=== PATIENT | female | born 1935 | race Two or more races ===

== ENCOUNTER 2024-11-19 15:48 | Inpatient (IN) | payer BC, OTHER ==
[~2024-11-19] VITALS: Ht 167.6 cm; Wt 69.5 kg
--- NOTE | 2024-11-19 16:32 | ED.PDOC ---
HPI (NEURO) HPI Comments 89 y/o F, with PMHX of DM, HTN, and CVA presents to the ED for CC of s/p syncopal episode. Per EMS, patient is coming from home where she had a witnessed syncopal episode by son which lasted at 30 seconds. EMS comments, patient's son was attempting to wake patient up by tapping her face and patient remained unresponsive. Patient's son endorses, that patients head zhane back and was unresponsive to stimuli for approximately 30 seconds. All VVS in route to the ED. Patient denies any head injury, musculoskeletal pain, lightheadedness, or nausea. No other symptoms or modifying factors at this time. 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 Family History Family History: Unknown Social History Smoker: Non-Smoker Alcohol: Denies ETOH Use Drugs: Denies Drug Use Lives In: Home Constitutional: denies: chills, diaphoresis, fatigue, fever, malaise, sweats, weakness, others EENTM: denies: blurred vision, double vision, ear bleeding, ear discharge, ear drainage, ear pain, ear ringing, eye pain, eye redness, hearing loss, mouth pain, mouth swelling, nasal discharge, nose bleeding, nose congestion, nose pain, photophobia, tearing, throat pain, throat swelling, voice changes, others Respiratory: denies: cough, hemoptysis, orthopnea, SOB at rest, shortness of breath, SOB with excertion, stridor, wheezing, others Cardiovascular: denies: chest pain, dizzy spells, diaphoresis, Dyspnea on exertion, edema, irregular heart beat, left arm pain, lightheadedness, palpitations, PND, syncope, others Gastrointestinal: denies: abdomen distended, abdominal pain, blood streaked bowels, constipated, diarrhea, dysphagia, difficulty swallowing, hematemesis, melena, nausea, poor appetite, poor fluid intake, rectal bleeding, rectal pain, vomiting, others Genitourinary: denies: abnormal vagina bleeding, burning, dyspareunia, dysuria, flank pain, frequency, hematuria, incontinence, pain, , vagina discharge, urgency, others Neurological: denies: dizziness, fainting, headache, left sided numbness, left sided weakness, numbness, paresthesia, pre-existing deficit, right sided numbness, right sided weakness, seizure, speech problems, tingling, tremors, weakness, others Musculoskeletal: denies: back pain, gout, joint pain, joint swelling, muscle pain, muscle stiffness, neck pain, others Integumetry: denies: bruises, change in color, change in hair/nails, dryness, laceration, lesions, lumps, rash, wounds, others Allergic/Immunocompromised: denies: Difficulty Healing, Frequent Infections, Hives, Itching, others Hematologic/Lymphatic: denies: anemia, blood clots, easy bleeding, easy bruising, swollen glands, others Endocrine: denies: excessive hunger, excessive sweating, excessive thirst, excessive urination, flushing, intolerance to cold, intolerance to heat, unexplained weight gain, unexplained weight loss, others Psychiatric: denies: anxiety, bipolar disorder, depression, hopeless, panic disorder, schizophrenia, sleepless, suicidal, others All Other Systems: Reviewed and Negative Physical Exam General Appearance: Moderate Distress, Thin HEENT: Normal ENT Inspection, Pharynx Normal, TMs Normal Neck: Full Range of Motion, Non-Tender, Normal, Normal Inspection Respiratory: Chest Non-Tender, Lungs Clear, No Accessory Muscle Use, No Respiratory Distress, Normal Breath Sounds Cardiovascular: No Edema, No JVD, No Murmur, No Gallop, Normal Peripheral Pulses, Regular Rate/Rhythm Breast Exam: Deferred Gastrointestinal: No Organomegaly, Non Tender, No Pulsatile Mass, Normal Bowel Sounds, Soft Genitalia: Deferred Pelvic: Deferred Rectal: Deferred Extremities: No calf tenderness, Normal capillary refill, No pedal edema Musculoskeletal : Apperance: Normal Neurologic: retirement plan counselor II-XII nml as Tested, Motor Weakness, Normal Affect, Normal Mood, No Sensory Deficits Cerebellar Function: Unable to Test Reflexes: Normal Skin: Dry, Normal Color, Warm Lymphatic: No Adenopathy EKG EKG : Pulse Rate (adult): 53 [place]: Normal Cardiac Rhythm: NSR Block: RBBB Hypertrophy: LVH ST: Normal Was a procedure done? Was a procedure done?: No Differential Diagnosis (SZ) Seizure: N/A General Weakness: Dehydration, Dysrhythmia, Electrolyte imbalance X-Ray, Labs, Meds, VS Vital Signs Date Time Temp Pulse Resp B/P (MAP) Pulse Ox O2 Delivery O2 Flow Rate FiO2 11/19/24 20:00 97.7 76 19 136/64 (88) 99 97.7 11/19/24 17:52 60 11/19/24 16:45 55 14 96 Room Air* 0 21 11/19/24 16:45 97.6 55 14 140/66 (90) 96 97.6 11/19/24 16:32 53 11/19/24 16:29 97.0 52 14 142/76 (98) 98 11/19/24 15:52 53 Lab Test 11/19/24 17:15 11/19/24 16:57 Range/Units Urine Color Light-yellow Yellow Urine Clarity Clear Clear Urine pH 7.0 5.0-9.0 Urine Specific [place] 1.011 1.001-1.035 Urine Protein Negative Negative Urine Ketones Negative Negative Urine Blood Negative Negative /uL Urine Nitrite Negative Negative Urine Bilirubin Negative Negative Urine Urobilinogen Normal Negative mg/dL Urine Leukocyte Esterase 1+ Negative /uL Urine RBC 1 0 - 4 /hpf Urine Microscopic WBC 2 0-5 /HPF Urine Squamous Epithelial Cells Few <5 /hpf Urine Bacteria Few H None Seen /hpf Urine Hyaline Casts Few 0 - 2 /lpf Urine Glucose Normal Normal mg/dL White Blood Count 7.9 4.4-10.8 10^3/uL Red Blood Count 4.79 4.0-5.20 10^6/uL Hemoglobin 14.4 12.2-16.2 g/dL Hematocrit 43.0 36.0-46.0 % Mean Corpuscular Volume 89.9 80.0-100.0 fL Mean Corpuscular Hemoglobin 30.1 28.0-32.0 pg Mean Corpuscular Hemoglobin Concent 33.5 32.0-36.0 g/dL Red Cell Distribution Width 13.5 11.8-14.3 % Platelet Count 214 140-450 10^3/uL Mean Platelet Volume 8.6 6.9-10.8 fL Neutrophils (%) (Auto) 72.9 37.0-80.0 % Lymphocytes (%) (Auto) 16.8 10.0-50.0 % Monocytes (%) (Auto) 7.1 0.0-12.0 % Eosinophils (%) (Auto) 2.4 0.0-7.0 % Basophils (%) (Auto) 0.8 0.0-2.0 % Neutrophils # (Auto) 5.8 1.6-8.6 10 ^3/uL Lymphocytes # (Auto) 1.3 0.4-5.4 10 ^3/uL Monocytes # (Auto) 0.6 0-1.3 10 ^3/uL Eosinophils # (Auto) 0.2 0-0.8 10 ^3/uL Basophils # (Auto) 0.1 0-0.2 10 ^3/uL Nucleated Red Blood Cells 0.2 % Sodium Level 137 136-145 mmol/L Potassium Level 3.9 3.5-5.1 mmol/L Chloride Level 102 98-107 mmol/L Carbon Dioxide Level 28 20-31 mmol/L Anion Gap 7 5-15 Blood Urea Nitrogen 10 9-23 mg/dL Creatinine 0.82 0.550-1.02 mg/dL Glomerular Filtration Rate Calc 68 >90 mL/min BUN/Creatinine Ratio 12.2 10.0-20.0 Serum Glucose 135 H 74-106 mg/dL Calcium Level 10.2 8.7-10.4 mg/dL Total Bilirubin 0.5 0.2-1.0 mg/dL Aspartate Amino Transferase (AST) 17 13-40 U/L Alanine Aminotransferase (ALT) < 9 7-40 U/L Alkaline Phosphatase 132 H 46-116 U/L Total Protein 7.6 5.7-8.2 g/dL Albumin 4.5 3.2-4.8 g/dL Plasma/Serum Blood Alcohol < 3.0 <10 mg/dL Current Medications Medications (Trade) Dose Ordered Sig/Christopher Route Start Time Stop Time Status Last Admin Sodium Chloride 500 ml @ 500 mls/hr Q1H ONCE IVB 11/19/24 16:15 11/19/24 17:14 DC 11/19/24 16:56 CXR: Findings/Impression: Frontal chest radiograph demonstrates no acute osseous or superficial soft tissue abnormalities. The trachea is midline. The cardiac silhouette and mediastinum are within normal limits. No pneumothorax, pleural effusions, or consolidations. ATED BY: CRISTINA SCOTT DO DICTATED DATE/TIME: 11/19/241644 SIGNED BY: CRISTINA SCOTT DO SIGNED DATE/TIME: 11/19/241644 CC: HEAD CT: FINDINGS: There is no evidence of acute intracranial hemorrhage, mass, mass effect midline shift. There is no hydrocephalus or extra-axial fluid collection. There are chronic microvascular ischemic changes in the supratentorial white matter. Christianson- white matter differentiation is maintained. The visualized paranasal sinuses and mastoid air cells are clear. The calvarium is intact. IMPRESSION: 1. No acute intracranial process. HS:Y ATED BY: NICO STEPHENSON MD DICTATED DATE/TIME: 11/19/241644 SIGNED BY: NICO STEPHENSON MD SIGNED DATE/TIME: 11/19/241644 CC: The patient was given normal saline at a 500 cc bolus The CBC and chemistry panel are within normal limits The urine test shows 1+ leukocytes for UTI At this time, the patient was being admitted with autonomic dysfunction as well as UTI The patient was being given Rocephin 1 g IV piggyback for the infection Images Reviewed?: Images reviewed and evaluated by me Time of 1ST Reevaluation: 16:38 Reevaluation 1ST: Unchanged Patient Education/Counseling: Diagnosis, Treatment, Prognosis Family Education/Counseling: Diagnosis, Treatment, Prognosis Departure 1 Departure Time of Disposition: 20:10 Impression: Primary Impression: Autonomic dysfunction Additional Impressions: UTI (urinary tract infection) Qualified Codes: N30.00 - Acute cystitis without hematuria Generalized weakness Symptomatic bradycardia Disposition: 09 ADMITTED INPATIENT Admit to: Tele Condition: Fair Critical Care Note Critical Care Time?: Yes (35 min-critical care time only) Stability Stability form required: Yes Unstable for transfer: Telemetry monitoring (Telemetry monitoring required), ED Physician Assesment (Clinical assesment) Heart Score Heart Score: Heart Score Response (Comments) Value History Slightly Suspicious 0 EKG Repolarization Disturb 1 Age >65 2 Risk Factors 1 or 2 risk factors 1 Troponin Normal limit 0 Total 4 I personally scribed for GINNA MARK MD ([email or web address]) on 11/19/24 at 16:32. Electronically submitted by Bonny Scott ([email or web address]). I personally scribed for GINNA MARK MD ([email or web address]) on 11/19/24 at 17:20. Electronically submitted by Bonny Scott ([email or web address]). I personally scribed for GINNA MARK MD ([email or web address]) on 11/19/24 at 17:21. Electronically submitted by Bonny Scott ([email or web address]). GINNA MARK MD Nov 19, 2024 16:32
[2024-11-19 16:45] VITALS: PULSE 55; RESP 14; O2SAT 96
--- NOTE | 2024-11-19 16:47 | DVH ---
EXAM: XY CHEST PORTABLE TECHNIQUE: Single frontal chest radiograph CLINICAL HISTORY: syncope COMPARISON: None Findings/Impression: Frontal chest radiograph demonstrates no acute osseous or superficial soft tissue abnormalities. The trachea is midline. The cardiac silhouette and mediastinum are within normal limits. No pneumothorax, pleural effusions, or consolidations.
--- NOTE | 2024-11-19 16:47 | DVH ---
EXAM: CT HEAD WITHOUT CONTRAST HISTORY: syncope COMPARISON: None TECHNIQUE: Axial images of the head were obtained and reformatted in coronal and sagittal planes. All CT scans at this medical facility are performed using dose modulation techniques as appropriate t o a performed exam including the following: Automated exposure control was utilized; adjustment of th e MA and/or KV according to patient size; and use of iterative reconstruction technique. CT Dose: CTDI volume is 53.67 mGy. Dose-length product is 969.5 mGy*cm FINDINGS: There is no evidence of acute intracranial hemorrhage, mass, mass effect midline shift. There is no h ydrocephalus or extra-axial fluid collection. There are chronic microvascular ischemic changes in the supratentorial white matter. Christianson-white matter differentiation is maintained. The visualized parana long sinuses and mastoid air cells are clear. The calvarium is intact. IMPRESSION: 1. No acute intracranial process. HS:Y
[2024-11-19] MEDS: SODIUM CHLORIDE 0.9% 500 ML IVB ONE (16:56)
[2024-11-19 17:10] LABS: Basophils # (auto) 0.1 10 ^3/uL (0-0.2); Basophils % (auto) 0.8 % (0.0-2.0); Eosinophils # (auto) 0.2 10 ^3/uL (0-0.8); Eosinophils % (auto) 2.4 % (0.0-7.0); Hemoglobin 14.4 g/dL (12.2-16.2); Lymphocytes # (auto) 1.3 10 ^3/uL (0.4-5.4); Lymphocytes % (auto) 16.8 % (10.0-50.0); Mean Corpuscular Hemoglobin 30.1 pg (28.0-32.0); Mean Corpuscular Hgb Conc. 33.5 g/dL (32.0-36.0); Mean Corpuscular Volume 89.9 fL (80.0-100.0); Monocytes # (auto) 0.6 10 ^3/uL (0-1.3); Monocytes % (auto) 7.1 % (0.0-12.0); Neutrophils # (auto) 5.8 10 ^3/uL (1.6-8.6); Neutrophils % (auto) 72.9 % (37.0-80.0); Nucleated Red Blood Cells % 0.2 %; Platelet Count (auto) 214 10^3/uL (140-450); Red Blood Cells 4.79 10^6/uL (4.0-5.20); Red Cell Distribution Width 13.5 % (11.8-14.3); White Blood Cell 7.9 10^3/uL (4.4-10.8)
[2024-11-19 17:27] LABS: Albumin 4.5 g/dL (3.2-4.8); Anion Gap 7 (5-15); Aspartate Aminotransferase 17 U/L (13-40); BUN/Creatinine Ratio 12.2 (10.0-20.0); Bilirubin, Total 0.5 mg/dL (0.2-1.0); Blood Urea Nitrogen 10 mg/dL (9-23); Calcium 10.2 mg/dL (8.7-10.4); Carbon Dioxide 28 mmol/L (20-31); Chloride 102 mmol/L (98-107); Potassium 3.9 mmol/L (3.5-5.1); Sodium 137 mmol/L (136-145); Total Protein 7.6 g/dL (5.7-8.2)
[2024-11-19 17:28] LABS: Alanine Aminotransferase < 9 U/L (7-40); Alkaline Phosphatase 132 U/L (46-116); Blood Alcohol < 3.0 mg/dL (<10); Glucose 135 mg/dL (74-106)
[2024-11-19 18:33] LABS: Urine Bacteria FEW /hpf (None Seen); Urine Blood Negative /uL (Negative); Urine Clarity Clear (Clear); Urine Color Light-Yellow (Yellow); Urine Hyaline Cast FEW /lpf (0 - 2); Urine Protein, UAD Negative (Negative); Urine Specific Gravity 1.011 (1.001-1.035); Urine Squamous Epithelial Cell FEW /hpf (<5); Urine Urobilinogen Normal (Negative); Urine WBC 2 /HPF (0-5)
--- NOTE | 2024-11-19 18:53 | ECG ---
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
--- NOTE | 2024-11-19 18:53 | ECG ---
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
--- NOTE | 2024-11-19 19:59 | DVHHP2 ---
Admitting Diagnosis: Syncope History of Present Illness 89 y/o F, with PMHX of DM, HTN, and CVA presents to the ED for CC of s/p syncopal episode. Per EMS, patient is coming from home where she had a witnessed syncopal episode by son which lasted at 30 seconds. EMS comments, patient's son was attempting to wake patient up by tapping her face and patient remained unresponsive. Patient's son endorses, that patients head zhane back and was unresponsive to stimuli for approximately 30 seconds. All VVS in route to the ED. Patient denies any head injury, musculoskeletal pain, lightheadedness, or n ausea. No other symptoms or modifying factors at this time. 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 Family History: Unknown Social History Smoker: Non-Smoker Alcohol: Denies ETOH Use Drugs: Denies Drug Use Lives In: Home Allergies: Coded Allergies: NO KNOWN ALLERGIES (Unverified , 11/19/24) Current Medications Current Medications Medications (Trade) Dose Ordered Sig/Christopher Route PRN Reason Start Time Stop Time Status Last Admin Docusate Sodium (Colace Capsule) 100 mg BIDPRN PRN PO FOR CONSTIPATION 11/19/24 20:00 UNV Vital Signs Vital Signs Date Time Temp Pulse Resp B/P (MAP) Pulse Ox O2 Delivery O2 Flow Rate FiO2 11/19/24 17:52 60 11/19/24 16:45 14 96 Room Air* 0 21 11/19/24 16:45 97.6 140/66 (90) 97.6 Physical Exam Generally-89 years old woman, well nourished well developed. No apparent distress HEENT-atraumatic normocephalic Heart-regular rate and rhythm Lungs clear to auscultate bilaterally Abdomen soft nontender nondistended Musculoskeletal-no edema cyanosis Neuro-AO x3, strength intact sensory intact Results Labs Test 11/19/24 17:15 11/19/24 16:57 Range/Units Urine Color Light-yellow Yellow Urine Clarity Clear Clear Urine pH 7.0 5.0-9.0 Urine Specific [place] 1.011 1.001-1.035 Urine Protein Negative Negative Urine Ketones Negative Negative Urine Blood Negative Negative /uL Urine Nitrite Negative Negative Urine Bilirubin Negative Negative Urine Urobilinogen Normal Negative mg/dL Urine Leukocyte Esterase 1+ Negative /uL Urine RBC 1 0 - 4 /hpf Urine Microscopic WBC 2 0-5 /HPF Urine Squamous Epithelial Cells Few <5 /hpf Urine Bacteria Few H None Seen /hpf Urine Hyaline Casts Few 0 - 2 /lpf Urine Glucose Normal Normal mg/dL White Blood Count 7.9 4.4-10.8 10^3/uL Red Blood Count 4.79 4.0-5.20 10^6/uL Hemoglobin 14.4 12.2-16.2 g/dL Hematocrit 43.0 36.0-46.0 % Mean Corpuscular Volume 89.9 80.0-100.0 fL Mean Corpuscular Hemoglobin 30.1 28.0-32.0 pg Mean Corpuscular Hemoglobin Concent 33.5 32.0-36.0 g/dL Red Cell Distribution Width 13.5 11.8-14.3 % Platelet Count 214 140-450 10^3/uL Mean Platelet Volume 8.6 6.9-10.8 fL Neutrophils (%) (Auto) 72.9 37.0-80.0 % Lymphocytes (%) (Auto) 16.8 10.0-50.0 % Monocytes (%) (Auto) 7.1 0.0-12.0 % Eosinophils (%) (Auto) 2.4 0.0-7.0 % Basophils (%) (Auto) 0.8 0.0-2.0 % Neutrophils # (Auto) 5.8 1.6-8.6 10 ^3/uL Lymphocytes # (Auto) 1.3 0.4-5.4 10 ^3/uL Monocytes # (Auto) 0.6 0-1.3 10 ^3/uL Eosinophils # (Auto) 0.2 0-0.8 10 ^3/uL Basophils # (Auto) 0.1 0-0.2 10 ^3/uL Nucleated Red Blood Cells 0.2 % Sodium Level 137 136-145 mmol/L Potassium Level 3.9 3.5-5.1 mmol/L Chloride Level 102 98-107 mmol/L Carbon Dioxide Level 28 20-31 mmol/L Anion Gap 7 5-15 Blood Urea Nitrogen 10 9-23 mg/dL Creatinine 0.82 0.550-1.02 mg/dL Glomerular Filtration Rate Calc 68 >90 mL/min BUN/Creatinine Ratio 12.2 10.0-20.0 Serum Glucose 135 H 74-106 mg/dL Calcium Level 10.2 8.7-10.4 mg/dL Total Bilirubin 0.5 0.2-1.0 mg/dL Aspartate Amino Transferase (AST) 17 13-40 U/L Alanine Aminotransferase (ALT) < 9 7-40 U/L Alkaline Phosphatase 132 H 46-116 U/L Total Protein 7.6 5.7-8.2 g/dL Albumin 4.5 3.2-4.8 g/dL Plasma/Serum Blood Alcohol < 3.0 <10 mg/dL Primary Diagnosis Syncope Plan CT head negative Check brain MRI to rule out stroke Check echo of the heart Check carotid Doppler Cardiology consult for syncope Start metoprolol in view of bradycardia of 50 EKG shows sinus bradycardia with possible left bundle-branch block. No chest pain Neuro check per floor protocol Does not have medication on hand. In view of CVA starting aspirin 81 mg daily. asked family to bring medication to resume home meds. Full code cardiac diet ppi for gi ppx lovenox for dvt ppx Plan discussed with: Patient Problems List: (1) Syncope Date of Service: Nov 19, 2024 Billing Provider: JOE HAY MD Common Visit Codes: [id number] INP/OBS CARE (HIGH) JOE HAY MD Nov 19, 2024 19:59
[2024-11-19] MEDS ORDERED: MORPHINE SULFATE INJ 2 MG/ml SYRG IV PRN (20:00)
[2024-11-19] MEDS ORDERED: DEXTROSE (50%) 50ML SYRG IV PRN (20:00)
[2024-11-19] MEDS ORDERED: DOCUSATE SOD 100 MG CAP PO PRN (20:00)
[2024-11-19] MEDS ORDERED: HYDROcodone-ACET 5/325MG TAB PO PRN (20:00)
[2024-11-19] MEDS ORDERED: ACETAMINOPHEN 325 MG TAB PO PRN (20:00)
[2024-11-19] MEDS ORDERED: ONDANSETRON HCL 4 MG/2 ML VIAL IV PRN (20:00)
[2024-11-19 20:30] VITALS: PULSE 68; RESP 14; O2SAT 96
[2024-11-19] MEDS: cefTRIAXone 1GM/50ML D5W 50 ML IV ONE (20:34)
[2024-11-19] MEDS: ACCU-CHEK COMFORT CURVE STRIP VI SCH (21:56)
[2024-11-19] MEDS: InsuLIN REG 1unit/0.01ml Soln (100units/ml) SC SCH (21:59)
--- NOTE | 2024-11-19 22:36 | DVH ---
Carotid Duplex Clinical History: syncope r/o stenosis Comparison: None Technique: Duplex Doppler evaluation of the extracranial carotid and vertebral arteries including col or Doppler and spectral/pulsed waveform analysis was performed. Findings: RIGHT SIDE: Peak systolic velocity ratio in the right ICA is 96 centimeters/second. In the right CCA is 96 centim eters/second. The ICA/ CCA ratio is 1.0 The external carotid artery is patent with peak systolic velocity of 64 cm/s proximally. There is appropriate antegrade flow in the right vertebral artery. LEFT SIDE: Peak systolic velocity ratio in the left ICA is 111 centimeters/second. In the left CCA 75 centimeter s/second. The ICA / CCA ratio is 1.5. The external carotid artery is patent with peak systolic velocity of 73 cm/s proximally. There is appropriate antegrade flow in the left vertebral artery. IMPRESSION: No hemodynamically significant stenosis noted in the right carotid system. No hemodynamically significant stenosis noted in the left carotid system. Reference: Radiology 2003; 229:340-346 Normal ICA PSV is <125 cm/sec and no plaque or intimal thickening is visible sonographically additional criteria include ICA/CCA PSV ratio <0 and ICA EDV <40 cm/sec <50% ICA stenosis ICA PSV is <125 cm/sec and plaque or intimal thickening is visible sonographically additional criteria include ICA/CCA PSV ratio <0 and ICA EDV <40 cm/sec 50-69% ICA stenosis ICA PSV is 125-230 cm/sec and plaque is visible sonographically additional criteria include ICA/CCA PSV ratio of0-4.0 and ICA EDV of 40-100 cm/sec 70% ICA stenosis but less than near occlusion ICA PSV is >230 cm/sec and visible plaque and luminal narrowing are seen at chavez-scale and color Dopp ler ultrasound (the higher the Doppler parameters lie above the threshold of 230 cm/sec, the greater the likelihood of severe disease) additional criteria include ICA/CCA PSV ratio >4 and ICA EDV >100 cm/sec
[2024-11-20] VITALS (11 sets, daily range): BP systolic 122–158; BP diastolic 60–80; PULSE 65–109; RESP 18; TEMP 97.4–98.7; O2SAT 18–100
[2024-11-20] MEDS ORDERED: GLIP5TAB21 PO (01:36)
[2024-11-20] MEDS ORDERED: AMLO1TAB22 PO (01:36)
[2024-11-20] MEDS ORDERED: METO25TA5 PO (01:36)
[2024-11-20] MEDS ORDERED: CHOL20007 PO (01:37)
--- NOTE | 2024-11-20 08:59 | DVH ---
EXAMINATION: MRI BRAIN HEAD WO CONTRAST INDICATION: syncope r/o stroke COMPARISON: None TECHNIQUE: Multiplanar, multisequence magnetic resonance imaging of the brain was performed without the use of i ntravenous contrast. FINDINGS: No evidence of acute or remote infarct. No intracranial hemorrhage. No mass effect. There is periventricular/deep white matter T2/FLAIR hyperintensity is nonspecific, but most commonly associated with chronic microvascular disease. The ventricles and sulci are normal in size for age. Clear basal cisterns. Flow voids in the major intracranial vessels are maintained. No abnormality of the orbits. Paranasal sinuses and mastoid air cells are clear. No abnormality of the visualized osseous structures and extracranial soft tissues. IMPRESSION: No acute infarct, intracranial hemorrhage, mass effect, or hydrocephalus.
[2024-11-20] MEDS: ASPirin-EC 81 mg tab PO SCH (09:41)
[2024-11-20] MEDS: ENOXAPARIN SOD 40 MG/0.4 ML SYRINGE SC SCH (09:41)
--- NOTE | 2024-11-20 11:53 | DVHPNRES ---
Progress Note Date Seen: Nov 20, 2024 Resident Creating Document: BREANNE BARROS RESIDENT Medical Necessity Reason Pt with a Central, PICC or Fol: No Subjective Review of Systems Mrs. Marinelli is with a 89-year-old female with a history of hypertension and diabetes type 2 recently started taking glipizide presents to the hospital with a chief complaint of dizziness and syncopal episode for 30 seconds. Per son at the bedside, patient was sitting on a chair when he heard some gurgling noises in saw her mom unresponsive, her neck was extended and her mouth was open, eyes were ruled out, patient did not respond to verbal commands therefore son rubbed the chest and the hand and patient regained consciousness within 30 seconds to 1 minute. Patient was not confused after the episode. She did not lose her urine or bowel or bite her tongue. She is experiencing dizziness for the past 4 months Patient was taking atenolol for blood pressure control, which was recently changed to metoprolol 25 mg daily by the primary care physician because of dizziness. Past medical history: Hypertension and diabetes mellitus type Home medication amlodipine 5 mg, glipizide 5 mg, metoprolol 25 mg daily Social history: Lives with daughter lives in [place], currently visiting son in the [facility] On arrival, patient was bradycardic, pulse rate 50s, sinus rhythm, EKG completed showed right bundle-branch and sinus bradycardia. We are holding her metoprolol and amlodipine at this time. CT head was unremarkable. Neurology consulted to rule out stroke, cardiology consulted. Patient seen and examined at the bedside. Orthostatic vitals pending, echocardiogram pending. Objective vital signs Vital Sign Date Time Temp Pulse Resp B/P (MAP) Pulse Ox O2 Delivery O2 Flow Rate FiO2 11/20/24 09:00 98.7 76 18 139/64 (89) 97 98.7 11/20/24 00:37 Room Air* 0 21 Total Intake and Output 11/19/24 11/19/24 11/20/24 15:00 23:00 07:00 Intake Total 500 ml 100 ml Balance 500 ml 100 ml medications Current Medications Medications Dose Ordered Sig/Christopher Route Start Time Stop Time Status Last Admin Dose Admin Docusate Sodium 100 mg BIDPRN PRN PO 11/19/24 20:00 Acetaminophen 650 mg Q6HP PRN PO 11/19/24 20:00 Acetaminophen/ Hydrocodone Bitart 1 tab Q4HP PRN PO 11/19/24 20:00 Ondansetron HCl 4 mg Q4HP PRN IV 11/19/24 20:00 Morphine Sulfate 2 mg Q4HPRN PRN IV 11/19/24 20:00 Enoxaparin Sodium 40 mg DAILY SC 11/20/24 10:00 11/20/24 09:41 40 MG Diagnostic Test (Pha) 1 strip ACHS 11/19/24 22:00 11/20/24 11:29 1 STRIP Insulin Human Regular ACHS SC 11/19/24 22:00 11/19/24 21:59 3 UNITS Dextrose 50 ml UD PRN IV 11/19/24 20:00 Aspirin 81 mg DAILY PO 11/20/24 10:00 11/20/24 09:41 81 MG Examination Patient lying in bed, in no acute distress. Very well conversational. Mood appropriate. General: Well-built, afebrile, palor, mucosae are moist Cardiovascular: Bradycardic but Regular S1 and S2. No murmurs, gallops or rubs. No JVD elevation. No pedal edema Respiratory: Normal B/L air entry on room air. Clear lung sounds on auscultation Abdomen: Soft, nontender, nondistended, normoactive bowel sounds, no rebound tenderness, no organomegaly, no masses Genitourinary: Deferred MSK/skin: Mobilizes 4 limbs. Skin is dry and warm Neurological: No motor, no sensitive deficits, normal speech. Pupils are isocoric and reactive. Psych/Mental Status: A/Ox3 laboratory and microbiology Laboratory Tests 11/19/24 16:57 Test 11/19/24 16:57 Range/Units Serum Glucose 135 H 74-106 mg/dL Labs and/or images reviewed: Labs reviewed by me, Image(s) reviewed by me Problem List/Assessment/Plan Problem List/Assessment/Plan Syncope -cardiogenic versus neurogenic versus medication induced Dizziness Ruled out stroke Rule out seizures ? Autonomic dysfunction Rule out orthostatic hypotension History of hypertension Brain MRI, CT head completed unremarkable Echocardiogram pending Carotid Doppler unremarkable Neurology consulted Cardiology consulted Holding patient's metoprolol and amlodipine at this time Diabetes mellitus type 2-hemoglobin A1c pending Serum glucose within goal of 140-180 Hold glipizide Consider initiating ISS if hyperglycemic Plan discussed with patient, son and daughter at the bedside in which all questions have been answered Goals of care discussed for more than 28 minute, full code status Case discussed with Dr. Richard Plan discussed with: Patient, Daughter (At the bedside), Son My Orders My Orders Orders - BREANNE BARROS Procedure Category Date Status Time Orthostatic Vital ORDERS 11/20/24 Transmitted Signs 08:06 * Neurology Consult CONS 11/20/24 Verified 11:38 Date of Service: Nov 20, 2024 Billing Provider: JENNIFER RICHARD MD Common Visit Codes: [id number] INP/OBS CARE(HIGH) BREANNE BARROS Nov 20, 2024 11:53 JENNIFER RICHARD MD Nov 20, 2024 23:06
--- NOTE | 2024-11-20 12:10 | DVHINCON2 ---
THANIA EDMONDSON [facility] 11/20/24 1210: Date Seen: Nov 20, 2024 Referring Physician MD Gurjit Reason for Consultation Syncope History of Present Illness This is an 89-year-old female patient who presents to emergency room for chief complaint of syncopal episode. The patient reports that she was sitting at home at the table yesterday when suddenly she began to feel dizzy. She does not remember much after that. The patient's son who was at bedside reports he witnessed the event and noticed that the patient's head had fallen back as if sh pao was staring into the ceiling. He reports that he began to call her name and she was not arousable so he got up and began gently tapping her face to wake her up. He reports that this event lasted approximately 30 seconds before the patient opened her eyes. EMS was called and the patient was brought to the emergency room for further evaluation. Initial twelve lead electrocardiogram reveals sinus bradycardia with right bundle branch block. Significant past medical history includes hypertension, type 2 diabetes mellitus, and dementia. The patient's daughter reports a recent switch in the patient's medication from atenolol to metoprolol approximately one week ago by the patient's primary doctor. Past Medical History Past medical history reviewed. No other significant than mentioned above. Past Surgical History Hysterectomy Family History: Cardiovascular disease G8 MOTHER Family History Family history reviewed. Social History Denies the use of tobacco, alcohol or illicit drugs. Allergies: Coded Allergies: NO KNOWN ALLERGIES (Unverified , 11/19/24) Home Meds Reported Medications Cholecalciferol (VITAMIN D3) 2,000 Unit Tab, 1 TAB PO DAILY, #30 TAB 5 Refills 11/20/24 Metoprolol Tartrate (Metoprolol Tartrate) 25 Mg Tab, 1 TAB PO DAILY, #180 TAB 1 Refill 11/20/24 Amlodipine Besylate (Amlodipine Besylate) 5 Mg Tab, 5 MG PO DAILY for 30 Days, MG 11/20/24 Glipizide (Glipizide) 5 Mg Tab, 2 TAB PO DAILY for DM, #90 TAB 3 Refills 11/20/24 Home Meds Home medications reviewed. Current Medications Current Medications Medications (Trade) Dose Ordered Sig/Christopher Route PRN Reason Start Time Stop Time Status Last Admin Docusate Sodium (Colace Capsule) 100 mg BIDPRN PRN PO FOR CONSTIPATION 11/19/24 20:00 Acetaminophen (Tylenol Tablet) 650 mg Q6HP PRN PO PAIN SCALE 1-3 OR TEMP>100.4 11/19/24 20:00 Acetaminophen/ Hydrocodone Bitart ([place] 5/325MG Tab) 1 tab Q4HP PRN PO MODERATE PAIN (4-6 PAIN SCALE) 11/19/24 20:00 Ondansetron HCl (Zofran) 4 mg Q4HP PRN IV NAUSEA / VOMITING 11/19/24 20:00 Morphine Sulfate 2 mg Q4HPRN PRN IV SEVERE PAIN (7-10 PAIN SCALE) 11/19/24 20:00 Enoxaparin Sodium (Lovenox) 40 mg DAILY SC 11/20/24 10:00 11/20/24 09:41 Diagnostic Test (Pha) (Accu-Chek Comfort Curve T) 1 strip ACHS 11/19/24 22:00 11/20/24 11:29 Insulin Human Regular (InsuLIN R) ACHS SC 11/19/24 22:00 11/19/24 21:59 Dextrose 50 ml UD PRN IV Blood Sugar LESS THAN 60 11/19/24 20:00 Aspirin (Ecotrin Enteric Coated Tablet) 81 mg DAILY PO 11/20/24 10:00 11/20/24 09:41 Review of Systems Constitutional: No symptom reported Ears, Nose, & Throat: No symptom reported Eyes: No symptom reported Neurological: Syncope Pulmonary/Respiratory: No symptoms reported Cardiovascular: No symptom reported Gastrointestinal: No symptom reported Genitourinary: No symptom reported Musculoskeletal: No symptom reported Skin: No symptom reported Psychiatric: No symptom reported Endocrine: No symptom reported Hematologic/Lymphatic: No symptom reported Vital Signs Vital Signs Date Time Temp Pulse Resp B/P (MAP) Pulse Ox O2 Delivery O2 Flow Rate FiO2 11/20/24 11:59 98.6 73 18 122/70 (87) 98 98.6 11/20/24 00:37 Room Air* 0 21 Physical Exam General Appearance: Cooperative. Well-developed. Well-nourished. No acute distress. Pulmonary/Respiratory: Clear, bilateral breaths sounds. Cardiovascular/Chest: Regular rate and rhythm. Peripheral Pulses: 2+ Radial (R). 2+ Radial (L). 2+ Pedal (R). 2+ Pedal (L) Abdominal Exam: Normal bowel sounds. Ankle Exam: Negative ankle edema Lower extremities: Negative lower extremity edema Neuro/Mental Status: A/OX3, coherent. Thoughts/Psych: Normal thought pattern. Appropriate mood and affect. Good judgment and insight. Appearance: No acute distress. Skin Exam: Normal inspection. Normal color. Warm and dry. Labs/Diagnostic Data Labs Test 11/20/24 05:09 11/19/24 17:15 11/19/24 16:57 Range/Units POC Glucose 104 70-106 mg/dl Urine Color Light-yellow Yellow Urine Clarity Clear Clear Urine pH 7.0 5.0-9.0 Urine Specific [place] 1.011 1.001-1.035 Urine Protein Negative Negative Urine Ketones Negative Negative Urine Blood Negative Negative /uL Urine Nitrite Negative Negative Urine Bilirubin Negative Negative Urine Urobilinogen Normal Negative mg/dL Urine Leukocyte Esterase 1+ Negative /uL Urine RBC 1 0 - 4 /hpf Urine Microscopic WBC 2 0-5 /HPF Urine Squamous Epithelial Cells Few <5 /hpf Urine Bacteria Few H None Seen /hpf Urine Hyaline Casts Few 0 - 2 /lpf Urine Glucose Normal Normal mg/dL White Blood Count 7.9 4.4-10.8 10^3/uL Red Blood Count 4.79 4.0-5.20 10^6/uL Hemoglobin 14.4 12.2-16.2 g/dL Hematocrit 43.0 36.0-46.0 % Mean Corpuscular Volume 89.9 80.0-100.0 fL Mean Corpuscular Hemoglobin 30.1 28.0-32.0 pg Mean Corpuscular Hemoglobin Concent 33.5 32.0-36.0 g/dL Red Cell Distribution Width 13.5 11.8-14.3 % Platelet Count 214 140-450 10^3/uL Mean Platelet Volume 8.6 6.9-10.8 fL Neutrophils (%) (Auto) 72.9 37.0-80.0 % Lymphocytes (%) (Auto) 16.8 10.0-50.0 % Monocytes (%) (Auto) 7.1 0.0-12.0 % Eosinophils (%) (Auto) 2.4 0.0-7.0 % Basophils (%) (Auto) 0.8 0.0-2.0 % Neutrophils # (Auto) 5.8 1.6-8.6 10 ^3/uL Lymphocytes # (Auto) 1.3 0.4-5.4 10 ^3/uL Monocytes # (Auto) 0.6 0-1.3 10 ^3/uL Eosinophils # (Auto) 0.2 0-0.8 10 ^3/uL Basophils # (Auto) 0.1 0-0.2 10 ^3/uL Nucleated Red Blood Cells 0.2 % Sodium Level 137 136-145 mmol/L Potassium Level 3.9 3.5-5.1 mmol/L Chloride Level 102 98-107 mmol/L Carbon Dioxide Level 28 20-31 mmol/L Anion Gap 7 5-15 Blood Urea Nitrogen 10 9-23 mg/dL Creatinine 0.82 0.550-1.02 mg/dL Glomerular Filtration Rate Calc 68 >90 mL/min BUN/Creatinine Ratio 12.2 10.0-20.0 Serum Glucose 135 H 74-106 mg/dL Calcium Level 10.2 8.7-10.4 mg/dL Total Bilirubin 0.5 0.2-1.0 mg/dL Aspartate Amino Transferase (AST) 17 13-40 U/L Alanine Aminotransferase (ALT) < 9 7-40 U/L Alkaline Phosphatase 132 H 46-116 U/L Total Protein 7.6 5.7-8.2 g/dL Albumin 4.5 3.2-4.8 g/dL Plasma/Serum Blood Alcohol < 3.0 <10 mg/dL Assessment Syncope, rule out cardiac etiology Sinus bradycardia with right bundle branch block Rule out cardiac arrhythmia Hypertension Type 2 diabetes mellitus Dementia Plan/Recommendation We will continue following plan/recommendations (Dr. Sunshine): * Transthoracic echocardiogram to evaluate cardiac function * Bilateral carotid ultrasound: Negative for stenosis * Orthostatic vital signs * Close Cardiac surveillance: Notify cardio team immediately for any ECG changes * Consider outpatient event monitor Seen and examined at bedside with . Thank you for allowing us to care for this patient. Please call with any questions or concerns. Critical care time spent: 42 minutes This medical document was created using an electronic medical record system with voice recognition software and computerized dictation system. Although this document has been carefully reviewed, there might still be some phonetic and typographical errors. Occasional wrong-word or ``sound-alike substitutions may have occurred due to the inherent limitations of voice recognition software. These areas are purely typographical due to imperfections of the software programs and do not reflect any compromise in the patient's medical care. Please read the chart carefully and recognize, using context, where these substitutions have occurred. Plan discussed with: Patient NYHA Physical activity limitations: NA Date of Service: Nov 20, 2024 Billing Provider: THANIA EDMONDSON Cardiology Common Codes: [id number] INP/OBS CARE (High) Cardiology Consultation Codes: [id number] CONSULT <45MIN GREG SUNSHINE DO 11/20/24 2147: Date Seen: Nov 20, 2024 Family History: Cardiovascular disease G8 MOTHER Allergies: Coded Allergies: NO KNOWN ALLERGIES (Unverified , 11/19/24) Home Meds Reported Medications Cholecalciferol (VITAMIN D3) 2,000 Unit Tab, 1 TAB PO DAILY, #30 TAB 5 Refills 11/20/24 Metoprolol Tartrate (Metoprolol Tartrate) 25 Mg Tab, 1 TAB PO DAILY, #180 TAB 1 Refill 11/20/24 Amlodipine Besylate (Amlodipine Besylate) 5 Mg Tab, 5 MG PO DAILY for 30 Days, MG 11/20/24 Glipizide (Glipizide) 5 Mg Tab, 2 TAB PO DAILY for DM, #90 TAB 3 Refills 11/20/24 Plan/Recommendation The patient was seen and examined with Thania Edmondson NP. I agree with her Assessment and Plan which was formulated with me. Plan discussed with: Patient, Daughter Date of Service: Nov 20, 2024 Billing Provider: GREG SUNSHINE DO Cardiology Common Codes: [id number] INP/OBS CARE (High) THANIA EDMONDSON Nov 20, 2024 12:10 GREG SUNSHINE DO Nov 20, 2024 21:47
[2024-11-20 12:29] LABS: Basophils # (auto) 0.1 10 ^3/uL (0-0.2); Basophils % (auto) 0.7 % (0.0-2.0); Eosinophils # (auto) 0.1 10 ^3/uL (0-0.8); Eosinophils % (auto) 0.9 % (0.0-7.0); Hemoglobin 13.8 g/dL (12.2-16.2); Lymphocytes # (auto) 2.1 10 ^3/uL (0.4-5.4); Lymphocytes % (auto) 26.6 % (10.0-50.0); Mean Corpuscular Hemoglobin 30.7 pg (28.0-32.0); Mean Corpuscular Hgb Conc. 34.5 g/dL (32.0-36.0); Mean Corpuscular Volume 88.9 fL (80.0-100.0); Monocytes # (auto) 0.6 10 ^3/uL (0-1.3); Monocytes % (auto) 7.6 % (0.0-12.0); Neutrophils # (auto) 5.1 10 ^3/uL (1.6-8.6); Neutrophils % (auto) 64.2 % (37.0-80.0); Nucleated Red Blood Cells % 0.1 %; Platelet Count (auto) 218 10^3/uL (140-450); Red Blood Cells 4.49 10^6/uL (4.0-5.20); Red Cell Distribution Width 13.3 % (11.8-14.3); White Blood Cell 7.9 10^3/uL (4.4-10.8)
[2024-11-20 12:43] LABS: Albumin 4.2 g/dL (3.2-4.8); Anion Gap 8 (5-15); Aspartate Aminotransferase 15 U/L (13-40); BUN/Creatinine Ratio 13.4 (10.0-20.0); Blood Urea Nitrogen 9 mg/dL (9-23); Calcium 10.2 mg/dL (8.7-10.4); Carbon Dioxide 28 mmol/L (20-31); Chloride 103 mmol/L (98-107); Cholesterol 147 mg/dL (< 200); Glucose 101 mg/dL (74-106); HDL Cholesterol 58 mg/dL (40-59); LDL Cholesterol 72 mg/dL (< 100); Potassium 3.8 mmol/L (3.5-5.1); Sodium 139 mmol/L (136-145); Total Protein 7.1 g/dL (5.7-8.2); Triglycerides 61 mg/dL (< 150)
[2024-11-20 12:44] LABS: Bilirubin, Total 0.7 mg/dL (0.2-1.0)
[2024-11-20 12:47] LABS: Alanine Aminotransferase < 9 U/L (7-40); Alkaline Phosphatase 121 U/L (46-116)
--- NOTE | 2024-11-20 18:45 | DVHSR ---
APPROVED REPORT EXAM: Two-dimensional and M-mode echocardiogram with Doppler and color Doppler. Blood Pressure: 137/60 mmHg INDICATION Syncope RISK FACTORS Height: 5'6", Weight: 149 DIMENSIONS LVDd3.7 (3.8-5.7cm)LA (2D)4.1 (1.9-4.0cm)Aortic Root2.6 (2.0-3.7cm) LVDs2.5 (2.5-4.0cm)LA (MM) (1.9-4.0cm)Aortic Cusp Exc1.5 (1.5-2.0cm) EF (%) 60.0 (55-70%)Rt. Atrium4.1 (1.9-4.0cm)Asc. Aorta3.0 cm IVSd1.3 (0.7-1.1cm)RV (D)3.9 (1.8-2.4cm) PWd1.1 (0.7-1.1cm) Mitral Valve MitralMitral Stenosis E wave0.84m/sMV Mean GR.mmHg A wave1.25m/sMV Peak GR.mmHg E/A ratio0.72D MVAcm2 DECEL [id number] 1/2 Timems Aortic Valve Aortic ValveAortic Stenosis V11.22m/Avila Mean GR.5mmHg V21.67m/Avila Peak GR.11mmHg LVOT Diameter1.8 (1.8-2.4cm)Doppler AVA1.86cm2 Pulmonic Valve V20.87m/s Tricuspid Valve TR Velocity2.51m/s [id number] Conclusion Normal biventricular size and systolic function. LVEF 60-65%. Normal wall motion. Mild LVH. Grade 1 d iastolic dysfunction. Mild biatrial enlargement. No significant valvular disease. Mild MAC. Mild TR. Trace PI. RVSP estimated at 29 mmHg based on an RAP of 3 mmHg. Normal IVC. No pericardial effusion.
--- NOTE | 2024-11-20 22:47 | DVHINCON2 ---
Date of service: Nov 20, [address] Lopez Reason for Consultation Syncope with a rolled back, rule out seizure History of Present Illness Ms. Marinelli is a 89 years old right-handed female with a history of hypertension, diabetes, she was brought to the [facility] on 11/20/2023 with a chief complaint of passing out. At that time, she is alert, oriented to person, place, good social skills, but she does not remember what happened to her, she said she came to the hospital referred by her doctor According to her daughter, when the patient was sitting in the chair in her son's room, she passed out and become company nonresponsive for about 30 seconds, there was no convulsion was shaking, the patient was never had similar problems previously. No history of seizure disorder, her daughter denies a history of stroke For at least 2-3 years, the patient was had progressive short-term memory di fficulties, she remember all her family members, but she may not able to find her way home in her neighborhood, it was not safe her to prepare meals, her family helps her with her home medications. She has been on donepezil 5 mg daily for 2-3 years Bradycardia was noticed in the hospital Orthostatic vitals test on 11/20/2024: Negative Plasma alcohol, 11/19/2024: < 3 Urinalysis, 11/19/2024: WBC: Two, urine leukocyte esterase: 1+ CBC, 11/20/2024: Unremarkable CMP, 11/20/2024: Unremarkable HGB A1c, 11/20/2024: 6.5 TG/HDL/LDL/HDL, 11/20/2024: 64/152/75/60 Vitamin B12, 11/20/2024: 378 TSH, 11/20/2024: 0.63 Carotid Doppler, 11/20/24: No hemodynamically significant stenosis noted in the right carotid system. No hemodynamically significant stenosis noted in the left carotid system CT head, 11/19/2024: No acute intracranial process. MRI head, 11/20/2024: No acute infarct, intracranial hemorrhage, mass effect, or hydrocephalus. Past Medical History Hypertension, diabetes, stroke Past Surgical History Hysterectomy Family History: Cardiovascular disease G8 MOTHER Family History Heart disease. No dementia Social History She was not tobacco smoke, no history of alcohol or recreational substance abuse Allergies: Coded Allergies: NO KNOWN ALLERGIES (Unverified , 11/19/24) Home Meds Reported Medications Cholecalciferol (VITAMIN D3) 2,000 Unit Tab, 1 TAB PO DAILY, #30 TAB 5 Refills 11/20/24 Metoprolol Tartrate (Metoprolol Tartrate) 25 Mg Tab, 1 TAB PO DAILY, #180 TAB 1 Refill 11/20/24 Amlodipine Besylate (Amlodipine Besylate) 5 Mg Tab, 5 MG PO DAILY for 30 Days, MG 11/20/24 Glipizide (Glipizide) 5 Mg Tab, 2 TAB PO DAILY for DM, #90 TAB 3 Refills 11/20/24 Current Medications Current Medications Medications (Trade) Dose Ordered Sig/Christopher Route PRN Reason Start Time Stop Time Status Last Admin Enoxaparin Sodium (Lovenox) 40 mg DAILY SC 11/20/24 10:00 11/20/24 09:41 Aspirin (Ecotrin Enteric Coated Tablet) 81 mg DAILY PO 11/20/24 10:00 11/20/24 09:41 Review of Systems As above, the other systems are negative Vital Signs Vital Signs Date Time Temp Pulse Resp B/P (MAP) Pulse Ox O2 Delivery O2 Flow Rate FiO2 11/20/24 21:00 98.0 78 18 140/73 (95) 99 98.0 11/20/24 19:45 Room Air* 0 21 Physical Exam GENERAL EXAM: General: the patient is well developed and nourished. No acute distress. HEENT: Normocephalic, neck is supple, no carotid bruits. No mass. RESPIRATORY: Normal respiratory effort with symmetrical lung expansion. Lungs clear to auscultation. CARDIOVASCULAR: Regular rate and rhythm with no murmurs. S1, S2. ABDOMEN: Soft, nontender, normal bowel sound NEUROLOGICAL: MENTAL STATUS: Awake and alert. Oriented to person, place, reasonable social skills, not able to provide history SPEECH, LANGUAGE, HIGHER CORTICAL FUNCTION: no aphasia or dysathria. CRANIAL NERVES: #2: Intact visual calles to confrontation. The optic discs were sharp. #3,4,6: Pupils are equal, round and reactive. EOMs full and conjugate. No nystagmus. #5: Facial sensation intact in all three divisions bilaterally. Mandibular strength intact. #7: Facial muscles symmetrical and strength intact. #8: Hearing grossly normal to voice. #9,10: Uvula and soft palate rise in the midline. Swallow and voice are normal. #11: Trapezius and sternomastoid strength intact bilaterally. #12: Tongue midline. No fasciculations or atrophy. SENSATION: Sensation to touch and pinprick is normal. MOTOR: Normal tone in the upper and lower extremity. Normal muscle bulk. No fasciculations. No abnormal movements or posturing. Muscle strength of the major groups in the upper extremities is 5/5. Muscle strength of the major groups in the lower extremities is 5/5. REFLEXES: Deep tendon reflexes normal and symmetrical. No pathological reflexes. CEREBELLAR/COORDINATION: Finger to nose is normal bilaterally. GAIT/STATION: deferred. Labs/Diagnostic Data Labs Test 11/20/24 20:37 11/20/24 12:00 11/19/24 17:15 11/19/24 16:57 Range/Units POC Glucose 103 70-106 mg/dl White Blood Count 7.9 4.4-10.8 10^3/uL Red Blood Count 4.49 4.0-5.20 10^6/uL Hemoglobin 13.8 12.2-16.2 g/dL Hematocrit 40.0 36.0-46.0 % Mean Corpuscular Volume 88.9 80.0-100.0 fL Mean Corpuscular Hemoglobin 30.7 28.0-32.0 pg Mean Corpuscular Hemoglobin Concent 34.5 32.0-36.0 g/dL Red Cell Distribution Width 13.3 11.8-14.3 % Platelet Count 218 140-450 10^3/uL Mean Platelet Volume 8.7 6.9-10.8 fL Neutrophils (%) (Auto) 64.2 37.0-80.0 % Lymphocytes (%) (Auto) 26.6 10.0-50.0 % Monocytes (%) (Auto) 7.6 0.0-12.0 % Eosinophils (%) (Auto) 0.9 0.0-7.0 % Basophils (%) (Auto) 0.7 0.0-2.0 % Neutrophils # (Auto) 5.1 1.6-8.6 10 ^3/uL Lymphocytes # (Auto) 2.1 0.4-5.4 10 ^3/uL Monocytes # (Auto) 0.6 0-1.3 10 ^3/uL Eosinophils # (Auto) 0.1 0-0.8 10 ^3/uL Basophils # (Auto) 0.1 0-0.2 10 ^3/uL Nucleated Red Blood Cells 0.1 % Sodium Level 139 136-145 mmol/L Potassium Level 3.8 3.5-5.1 mmol/L Chloride Level 103 98-107 mmol/L Carbon Dioxide Level 28 20-31 mmol/L Anion Gap 8 5-15 Blood Urea Nitrogen 9 9-23 mg/dL Creatinine 0.67 0.550-1.02 mg/dL Glomerular Filtration Rate Calc 83 >90 mL/min BUN/Creatinine Ratio 13.4 10.0-20.0 Serum Glucose 101 74-106 mg/dL Hemoglobin A1c 6.5 H <5.7 % A1C Calcium Level 10.2 8.7-10.4 mg/dL Magnesium Level 2.0 1.6-2.6 mg/dL Total Bilirubin 0.7 0.2-1.0 mg/dL Aspartate Amino Transferase (AST) 15 13-40 U/L Alanine Aminotransferase (ALT) < 9 7-40 U/L Alkaline Phosphatase 121 H 46-116 U/L Total Protein 7.1 5.7-8.2 g/dL Albumin 4.2 3.2-4.8 g/dL Triglycerides Level 64 < 150 mg/dL Cholesterol Level 152 < 200 mg/dL LDL Cholesterol 75 < 100 mg/dL HDL Cholesterol 60 H 40-59 mg/dL Vitamin B12 Level 378 211-911 pg/mL Vitamin D 25-Hydroxy 40.5 30.0-100 ng/mL Thyroid Stimulating Hormone (TSH) 0.63 0.55-4.78 uIU/mL Urine Color Light-yellow Yellow Urine Clarity Clear Clear Urine pH 7.0 5.0-9.0 Urine Specific [place] 1.011 1.001-1.035 Urine Protein Negative Negative Urine Ketones Negative Negative Urine Blood Negative Negative /uL Urine Nitrite Negative Negative Urine Bilirubin Negative Negative Urine Urobilinogen Normal Negative mg/dL Urine Leukocyte Esterase 1+ Negative /uL Urine RBC 1 0 - 4 /hpf Urine Microscopic WBC 2 0-5 /HPF Urine Squamous Epithelial Cells Few <5 /hpf Urine Bacteria Few H None Seen /hpf Urine Hyaline Casts Few 0 - 2 /lpf Urine Glucose Normal Normal mg/dL Plasma/Serum Blood Alcohol < 3.0 <10 mg/dL Assessment Passing out Syncope Seizure Bradycardia Dementia Alzheimer disease Other etiology Plan/Recommendation Monitoring Supportive treatment Telemetry EEG Folic acid Increase the Aricept to 10 mg daily Cardiology on case Syncopal precautions More recommendation per clinical course Prognosis: Poor This medical document was created using an electronic medical record system with [employer]hibition [employer] dictation system. Although this document has been carefully reviewed, there may still be some phonetic and typographical errors. These areas are purely typographical due to imperfections of the software programs, and do not reflect any compromise in the patient's medical care. Plan discussed with: Daughter, Other MARYJANE PENA MD Nov 20, 2024 22:47
[2024-11-21] MEDS ORDERED: HALOPERIDOL LACTATE 5 MG/ML INJ VIAL IM PRN (00:30)
[2024-11-21 01:00] VITALS: BP 150/93; PULSE 74; RESP 18; TEMP 97.7; O2SAT 99
[2024-11-21 08:00] VITALS: PULSE 72; PULSE 86; RESP 20; O2SAT 99
[2024-11-21 08:58] VITALS: BP 146/74; PULSE 86; RESP 20; TEMP 97.8; O2SAT 99
[2024-11-21 11:20] LABS: Basophils # (auto) 0.1 10 ^3/uL (0-0.2); Basophils % (auto) 0.9 % (0.0-2.0); Eosinophils # (auto) 0.1 10 ^3/uL (0-0.8); Hematocrit 36.2 % (36.0-46.0); Hemoglobin 12.7 g/dL (12.2-16.2); Lymphocytes # (auto) 1.6 10 ^3/uL (0.4-5.4); Lymphocytes % (auto) 24.7 % (10.0-50.0); Mean Corpuscular Hemoglobin 31.2 pg (28.0-32.0); Mean Corpuscular Hgb Conc. 35.2 g/dL (32.0-36.0); Mean Corpuscular Volume 88.6 fL (80.0-100.0); Monocytes # (auto) 0.6 10 ^3/uL (0-1.3); Monocytes % (auto) 9.4 % (0.0-12.0); Neutrophils # (auto) 4.2 10 ^3/uL (1.6-8.6); Platelet Count (auto) 213 10^3/uL (140-450); Red Blood Cells 4.08 10^6/uL (4.0-5.20); Red Cell Distribution Width 13.4 % (11.8-14.3); White Blood Cell 6.5 10^3/uL (4.4-10.8)
--- NOTE | 2024-11-21 11:40 | DVHPN2 ---
Consult Progress Note Subjective Other Systems: The patient is in normal sinus rhythm at time of assessment Objective vital signs Vital Sign Date Time Temp Pulse Resp B/P (MAP) Pulse Ox O2 Delivery O2 Flow Rate FiO2 11/21/24 08:58 97.8 86 20 146/74 (98) 99 97.8 11/21/24 08:00 Room Air* 0 21 Total Intake and Output 11/20/24 11/20/24 11/21/24 15:00 23:00 07:00 Intake Total 700 ml Output Total 800 ml Balance -100 ml medications Current Medications Medications Dose Ordered Sig/Christopher Route Start Time Stop Time Status Last Admin Dose Admin Docusate Sodium 100 mg BIDPRN PRN PO 11/19/24 20:00 Acetaminophen 650 mg Q6HP PRN PO 11/19/24 20:00 Acetaminophen/ Hydrocodone Bitart 1 tab Q4HP PRN PO 11/19/24 20:00 Ondansetron HCl 4 mg Q4HP PRN IV 11/19/24 20:00 Morphine Sulfate 2 mg Q4HPRN PRN IV 11/19/24 20:00 Enoxaparin Sodium 40 mg DAILY SC 11/20/24 10:00 11/21/24 10:55 40 MG Diagnostic Test (Pha) 1 strip ACHS 11/19/24 22:00 11/20/24 21:06 1 STRIP Insulin Human Regular ACHS SC 11/19/24 22:00 11/20/24 17:03 2 UNITS Dextrose 50 ml UD PRN IV 11/19/24 20:00 Aspirin 81 mg DAILY PO 11/20/24 10:00 11/21/24 10:55 81 MG Donepezil HCl 10 mg HS PO 11/21/24 22:00 Haloperidol Lactate 2 mg Q8HP PRN IM 11/21/24 00:30 Examination: GENERAL:Normal, LUNGS:Normal, CVS:Normal, NEURO:Normal laboratory and microbiology Laboratory Tests 11/21/24 10:50 Test 11/21/24 10:50 Range/Units Serum Glucose Pending Problem List/Assessment/Plan Problem List/Assessment/Plan Syncope, rule out cardiac etiology 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 Carmona): * Transthoracic echocardiogram reveals EF 60-65% * Bilateral carotid ultrasound: Negative for stenosis * Orthostatic vital signs:negative * Close Cardiac surveillance: Notify cardio team immediately for any ECG changes * Consider outpatient event monitor The patient remains in normal sinus rhythm at time of assessment. No episodes of significant bradycardia, pauses, or atrioventricular blocks noted on athletic monitor. Consider outpatient event monitor if deemed necessary. Thank you for allowing us to care for this patient. Please call with any questions or concerns. This medical document was created using an electronic medical record system with voice recognition software and computerized dictation system. Although this document has been carefully reviewed, there might still be some phonetic and typographical errors. Occasional wrong-word or ``sound-alike substitutions may have occurred due to the inherent limitations of voice recognition software. These areas are purely typographical due to imperfections of the software programs and do not reflect any compromise in the patient's medical care. Please read the chart carefully and recognize, using context, where these substitutions have occurred. Plan discussed with: Patient, Daughter Date of Service: Nov 21, 2024 Billing Provider: THANIA TORRES Common Visit Codes: [id number] INP/OBS CARE(HIGH) THANIA TORRES Nov 21, 2024 11:40
[2024-11-21 11:41] LABS: Albumin 3.9 g/dL (3.2-4.8); Alkaline Phosphatase 108 U/L (46-116); Anion Gap 7 (5-15); Aspartate Aminotransferase 17 U/L (13-40); Blood Urea Nitrogen 13 mg/dL (9-23); Calcium 9.8 mg/dL (8.7-10.4); Carbon Dioxide 28 mmol/L (20-31); Chloride 104 mmol/L (98-107); Potassium 4.1 mmol/L (3.5-5.1); Sodium 139 mmol/L (136-145); Total Protein 6.2 g/dL (5.7-8.2)
[2024-11-21 11:42] LABS: Alanine Aminotransferase < 9 U/L (7-40); Bilirubin, Total 0.7 mg/dL (0.2-1.0); Glucose 106 mg/dL (74-106)
--- NOTE | 2024-11-21 16:48 | DVHDSRES ---
Discharge Summary Date of Admission Resident Creating Document: BREANNE BARROS RESIDENT Nov 19, 2024 at 19:52 Date of Discharge: Nov 21, 2024 Labs/Diagnostic Data: Laboratory Results Test 11/21/24 10:50 11/20/24 23:40 11/20/24 20:37 11/20/24 12:00 White Blood Count 6.5 10^3/uL (4.4-10.8) Red Blood Count 4.08 10^6/uL (4.0-5.20) Hemoglobin 12.7 g/dL (12.2-16.2) Hematocrit 36.2 % (36.0-46.0) Mean Corpuscular Volume 88.6 fL (80.0-100.0) Mean Corpuscular Hemoglobin 31.2 pg (28.0-32.0) Mean Corpuscular Hemoglobin Concent 35.2 g/dL (32.0-36.0) Red Cell Distribution Width 13.4 % (11.8-14.3) Platelet Count 213 10^3/uL (140-450) Mean Platelet Volume 8.9 fL (6.9-10.8) Neutrophils (%) (Auto) 64.0 % (37.0-80.0) Lymphocytes (%) (Auto) 24.7 % (10.0-50.0) Monocytes (%) (Auto) 9.4 % (0.0-12.0) Eosinophils (%) (Auto) 1.0 % (0.0-7.0) Basophils (%) (Auto) 0.9 % (0.0-2.0) Neutrophils # (Auto) 4.2 10 ^3/uL (1.6-8.6) Lymphocytes # (Auto) 1.6 10 ^3/uL (0.4-5.4) Monocytes # (Auto) 0.6 10 ^3/uL (0-1.3) Eosinophils # (Auto) 0.1 10 ^3/uL (0-0.8) Basophils # (Auto) 0.1 10 ^3/uL (0-0.2) Nucleated Red Blood Cells 0.0 % Sodium Level 139 mmol/L (136-145) Potassium Level 4.1 mmol/L (3.5-5.1) Chloride Level 104 mmol/L (98-107) Carbon Dioxide Level 28 mmol/L (20-31) Anion Gap 7 (5-15) Blood Urea Nitrogen 13 mg/dL (9-23) Creatinine 0.62 mg/dL (0.550-1.02) Glomerular Filtration Rate Calc 85 mL/min (>90) BUN/Creatinine Ratio 21.0 (10.0-20.0) Serum Glucose 106 mg/dL (74-106) Calcium Level 9.8 mg/dL (8.7-10.4) Total Bilirubin 0.7 mg/dL (0.2-1.0) Aspartate Amino Transferase (AST) 17 U/L (13-40) Alanine Aminotransferase (ALT) < 9 U/L (7-40) Alkaline Phosphatase 108 U/L (46-116) Troponin I High Sensitivity 9 ng/L (</=34) Total Protein 6.2 g/dL (5.7-8.2) Albumin 3.9 g/dL (3.2-4.8) Folic Acid 12.94 ng/mL (>5.38) POC Glucose 103 mg/dl (70-106) Hemoglobin A1c 6.5 % A1C (<5.7) Magnesium Level 2.0 mg/dL (1.6-2.6) Triglycerides Level 64 mg/dL (< 150) Cholesterol Level 152 mg/dL (< 200) LDL Cholesterol 75 mg/dL (< 100) HDL Cholesterol 60 mg/dL (40-59) Vitamin B12 Level 378 pg/mL (211-911) Vitamin D 25-Hydroxy 40.5 ng/mL (30.0-100) Thyroid Stimulating Hormone (TSH) 0.63 uIU/mL (0.55-4.78) Test 11/19/24 17:15 11/19/24 16:57 Urine Color Light-yellow (Yellow) Urine Clarity Clear (Clear) Urine pH 7.0 (5.0-9.0) Urine Specific [place]pin 1.011 (1.001-1.035) Urine Protein Negative (Negative) Urine Ketones Negative (Negative) Urine Blood Negative /uL (Negative) Urine Nitrite Negative (Negative) Urine Bilirubin Negative (Negative) Urine Urobilinogen Normal mg/dL (Negative) Urine Leukocyte Esterase 1+ /uL (Negative) Urine RBC 1 /hpf (0 - 4) Urine Microscopic WBC 2 /HPF (0-5) Urine Squamous Epithelial Cells Few /hpf (<5) Urine Bacteria Few /hpf (None Seen) Urine Hyaline Casts Few /lpf (0 - 2) Urine Glucose Normal mg/dL (Normal) Plasma/Serum Blood Alcohol < 3.0 mg/dL (<10) Other Laboratory Tests 11/21/24 10:50 Brief Hx & Hospital Course: Mrs. Marinelli is with a 89-year-old female with a history of hypertension and diabetes type 2 recently started taking glipizide presents to the hospital with a chief complaint of dizziness and syncopal episode for 30 seconds. Per son at the bedside, patient was sitting on a chair when he heard some gurgling noises in saw her mom unresponsive, her neck was extended and her mouth was open, eyes were ruled out, patient did not respond to verbal commands therefore son rubbed the chest and the hand and patient regained consciousness within 30 seconds to 1 minute. Patient was not confused after the episode. She did not lose her urine or bowel or bite her tongue. She is experiencing dizziness for the past 4 months Patient was taking atenolol for blood pressure control, which was recently changed to metoprolol 25 mg daily by the primary care physician because of dizziness. Past medical history: Hypertension and diabetes mellitus type Home medication amlodipine 5 mg, glipizide 5 mg, metoprolol 25 mg daily Social history: Lives with daughter lives in [place], currently visiting son in the [facility] On arrival, patient was bradycardic, pulse rate 50s, sinus rhythm, EKG completed showed right bundle-branch and sinus bradycardia. We held metoprolol and amlodipine at this time. CT head was unremarkable. Neurology consulted to rule out stroke, cardiology consulted. Orthostatic vitals were unremarkable. Brain MRI completed which was unremarkable. Carotid Doppler unremarkable. Telemetry was reveals the next day, showed premature atrial contraction along with sinus tachycardia. No more bradycardic events were noted. Neurology Increase the Aricept to 10 mg daily and recommended EEG. Cardiology recommended Holter monitoring as outpatient. Echocardiogram completed, showed Normal biventricular size and systolic function. LVEF 60-65%. Normal wall motion. Mild LVH. Grade 1 diastolic dysfunction. Mild biatrial enlargement. No significant valvular disease. Mild MAC. Mild TR. Trace PI. RVSP estimated at 29 mmHg based on an RAP of 3 mmHg. Normal IVC. No pericardial effusion. Patient left AMA during ongoing evaluation. 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 Autonomic dysfunction Ruled out orthostatic hypotension History of hypertension Diabetes mellitus type 2-hemoglobin A1c 6.5 Dementia Discharge Disposition: AMA Discharge Statement: "Patient was advised to return to the ER or call 911 if any headaches, dizziness, shortness of breath, chest pain, abdominal pain, bleeding, fevers, or worsening of medical condition. Patient was counseled about treatment plan, medications, possible side effects, patientverbalized understanding. All questions were answered to the best of my ability. This discharge took greater then 30 minutes in planning, reviewing documentation, counseling the patient, and discussing with other team members." ASSESSMENT ASSESSMENT Assessment Date of Service: Nov 21, 2024 Billing Provider: JENNIFER RICHARD MD Common Visit Codes: 63949-PGS/OBS DISCH DAY >30min BREANNE BARROS RESIDENT Nov 21, 2024 16:48 JENNIFER RICHARD MD Nov 24, 2024 14:31
[2024-11-21] MEDS ORDERED: DONEPEZIL HYDROCHLORIDE 5 MG TAB PO SCH (22:00)
--- NOTE | 2024-11-21 23:04 | DVHEEG2 ---
Neurology EEG Procedural Note Procedural Note EXAM DATE: 11/21/2024 REFERRING DOCTOR: Dr. Pena TECHNIQUE: Eighteen channels of EEG, 2 channels of EOG, and 1 channel of EKG were recorded using the International 10/20 system. CLINICAL DATA: The patient was referred for an EEG evaluation for the evidence of seizure disorder. MEDICATIONS: See the chart BACKGROUND ACTIVITY: While the patient was awake, the background activity consisted of well regulated 13 Hz rhythmic waveforms, symmetrically distributed over both posterior quadrants and was reactive to eye opening. ACTIVATION: Hyperventilation: Not done Photic Stimulation: Not done Sleep: Stage I & II IMPRESSION: This is a normal EEG. No focal, lateralized, or epileptiform features are noted. If clinically indicated to rule out a seizure disorder, rec ommend repeat EEG with sleep deprivation. The EKG channel showed a regular heart rate of 72/min. [place] [address] MARYJANE PENA MD Nov 21, 2024 23:04
== END 2024-11-21 13:00 | disposition left against medical advice (07) | DRG 74 ==
LOC: EDBD 15:48 → ER 15:48 → OVERFLOW 19:52 → TELE-WESTW 19:54
PROVIDERS: ADMIT Internal Medicine; ATTEND Internal Medicine
DX: G90.9 Disorder of the autonomic nervous system, unspecified (principal); I45.10 Unspecified right bundle-branch block; G30.9 Alzheimer's disease, unspecified; R56.9 Unspecified convulsions; F02.80 Dementia in other diseases classified elsewhere, unspecified severity, without behavioral disturbance, psychotic disturbance, mood disturbance, and anxiety; I10 Essential (primary) hypertension; Z53.29 Procedure and treatment not carried out because of patient's decision for other reasons; E11.9 Type 2 diabetes mellitus without complications; I49.9 Cardiac arrhythmia, unspecified; T50.995A Adverse effect of other drugs, medicaments and biological substances, initial encounter; Z79.899 Other long term (current) drug therapy; Z86.73 Personal history of transient ischemic attack (TIA), and cerebral infarction without residual deficits; Z90.710 Acquired absence of both cervix and uterus; Z82.49 Family history of ischemic heart disease and other diseases of the circulatory system; Y92.89 Other specified places as the place of occurrence of the external cause; Z79.84 Long term (current) use of oral hypoglycemic drugs; R00.1 Bradycardia, unspecified
CPT/HCPCS: 36415; 70450; 70551; 71045; 80053; 80061; 80320; 81001; 82306; 82607; 82746; 82962; 83036; 83735; 84443; 84484; 85025; 93005; 93306; 93886; 95819; 96365; 99291; G0378; J1815